=== PATIENT | female | born 1980 | race Caucasian/White ===

== ENCOUNTER 2016-03-12 05:38 | Emergency (ER) | payer OTHER ==
[~2016-03-12] VITALS: Ht 154.9 cm; Wt 71.7 kg
[~2016-03-12 05:38] MED LIST: CIPRO500 MG PO; NORCO 5/3251 TABLET PO; PROVENTIL HFA6.7 GM IH; ZOFRAN4 MG PO
[2016-03-12] MEDS ORDERED: PEPCID20 MG PO (06:28)
[2016-03-12] MEDS ORDERED: PREDNISONE10 MG PO (06:28)
[2016-03-12 06:54] VITALS: BP 134/68
== END 2016-03-12 06:56 | disposition home or self-care (01) ==
LOC: EME 05:38
DX: T78.40XA Allergy, unspecified, initial encounter (principal); X58.XXXA Exposure to other specified factors, initial encounter; L50.9 Urticaria, unspecified; L29.9 Pruritus, unspecified; F17.200 Nicotine dependence, unspecified, uncomplicated
CPT/HCPCS: 99281; 99283; J7512

== ENCOUNTER 2016-05-15 12:59 | Emergency (ER) | payer OTHER ==
[~2016-05-15] VITALS: Ht 154.9 cm; Wt 75.8 kg
[~2016-05-15 12:59] MED LIST changes: +PEPCID20 MG PO; +PREDNISONE10 MG PO
[2016-05-15] MEDS ORDERED: ATARAX,VISTARIL50 MG PO (14:50)
[2016-05-15 15:39] LABS: HEMATOCRIT 38.9 % (36.0-46.0); MCH 28.4 PG (29.0-34.0); MCHC 33.9 G/DL (30.0-36.0); MCV 83.7 FL (83-99); MEAN PLAT.VOLUME 10.3 uM^3 (9.5-12.4); PLATELET COUNT 229 K/uL (156-360); RBC DIS.WIDTH-CV 12.7 % (11.8-14.6); RED BLOOD COUNT 4.65 M/uL (3.80-5.20); WHITE BLOOD COUNT 7.6 K/uL (4.1-10.2)
[2016-05-15 15:54] LABS: CHLORIDE 107 mEq/L (99-109); POTASSIUM 4.1 mEq/L (3.7-5.4); SODIUM 138 mEq/L (136-147)
[2016-05-15 15:55] LABS: D-DIMER ELISA 0.28 mg/L FEU (< 0.57)
[2016-05-15 15:56] LABS: GLUCOSE 94 mg/dL (70-99)
[2016-05-15 15:57] LABS: ANION GAP 8 MEQ/L (2-14)
[2016-05-15 16:00] LABS: GFR ESTIMATE (CALCULATED) > 59 mL/min/
[2016-05-15 16:01] LABS: UREA NITROGEN (BUN) 12 mg/dL (9-23)
[2016-05-15 17:57] VITALS: BP 125/80
== END 2016-05-15 18:00 | disposition home or self-care (01) ==
LOC: EME 12:59
PROVIDERS: Nurse Practitioner Family
DX: M79.662 Pain in left lower leg (principal); M79.89 Other specified soft tissue disorders; R06.00 Dyspnea, unspecified; Z86.711 Personal history of pulmonary embolism; F17.200 Nicotine dependence, unspecified, uncomplicated
CPT/HCPCS: 71020; 73590; 80048; 85027; 85379; 93971; 99281; 99284

== ENCOUNTER 2016-07-13 17:02 | Emergency (ER) | payer OTHER ==
[~2016-07-13] VITALS: Ht 154.9 cm; Wt 80.1 kg
[~2016-07-13 17:02] MED LIST changes: +ATARAX,VISTARIL50 MG PO
[2016-07-13 17:38] LABS: ADD MIUA? NO; BILIRUBIN NEGATIVE; BLOOD NEGATIVE; COLOR YELLOW ((YELLOW)); GLUCOSE (STRIP) NEGATIVE; KETONES 5; LEUKOCYTES NEGATIVE; NITRITE NEGATIVE; PROTEIN (STRIP) NEGATIVE; SPECIFIC GRAVITY 1.016 (1.000-1.030); UROBILINOGEN 0.2 MG/DL (0.2-1.0)
[2016-07-13 18:31] LABS: CHLORIDE 107 mEq/L (99-109); POTASSIUM 3.8 mEq/L (3.7-5.4); SODIUM 139 mEq/L (136-147)
[2016-07-13 18:33] LABS: GLUCOSE 97 mg/dL (70-99)
[2016-07-13 18:34] LABS: ANION GAP 10 MEQ/L (2-14)
[2016-07-13 18:35] LABS: INTER. NORMALIZED RATIO 0.9; PROTHROMBIN TIME 9.5 (9.2-11.2); PTT 21.9 (25-32); TOTAL BILIRUBIN 0.2 mg/dL (0.0-1.0)
[2016-07-13 18:36] LABS: ALKALINE PHOSPHATASE 98 IU/L (3-129)
[2016-07-13 18:37] LABS: GFR ESTIMATE (CALCULATED) > 59 mL/min/
[2016-07-13 18:38] LABS: UREA NITROGEN (BUN) 7 mg/dL (9-23)
[2016-07-13 18:40] LABS: LIPASE 45 U/L (1.0-51.0)
[2016-07-13 19:32] LABS: BASOPHIL COUNT 0.1 K/uL (0-0.1); EOSINOPHIL (%) 10.4 % (0-5); EOSINOPHIL COUNT 0.7 K/uL (0-0.3); HEMATOCRIT 36.9 % (36.0-46.0); IMMATURE GRANULOCYTE (%) 0.2 % (0.0-0.7); INSTRUMENT ABS NEUTROPHIL CT 3.2 K/uL; LYMPHOCYTE COUNT 2.2 K/uL (1.0-2.8); MCH 28.1 PG (29.0-34.0); MCHC 33.3 G/DL (30.0-36.0); MCV 84.2 FL (83-99); MEAN PLAT.VOLUME 10.7 uM^3 (9.5-12.4); MONOCYTE (%) 8.1 % (3-12); MONOCYTE COUNT 0.5 K/uL (0-0.8); NEUTROPHIL (%) 47.6 % (45-76); NEUTROPHIL COUNT 3.2 K/uL (1.8-6.4); PLATELET COUNT 222 K/uL (156-360); RBC DIS.WIDTH-CV 13.2 % (11.8-14.6); RBC DIS.WIDTH-SD 40.6 % (39-53); RED BLOOD COUNT 4.38 M/uL (3.80-5.20); WHITE BLOOD COUNT 6.7 K/uL (4.1-10.2)
[2016-07-13] MEDS ORDERED: ZOFRAN ODT4 MG PO (20:15)
[2016-07-13] MEDS ORDERED: BENTYL20 MG PO (20:15)
[2016-07-13] MEDS ORDERED: MIRALAX255 GM PO (20:15)
[2016-07-13 20:41] VITALS: BP 130/85
== END 2016-07-13 20:42 | disposition home or self-care (01) ==
LOC: EME 17:02
PROVIDERS: Physician Assistant
DX: R10.2 Pelvic and perineal pain (principal); K59.00 Constipation, unspecified; R10.31 Right lower quadrant pain; D25.9 Leiomyoma of uterus, unspecified; F17.200 Nicotine dependence, unspecified, uncomplicated
CPT/HCPCS: 74176; 76856; 80053; 81003; 83690; 85025; 85025 91; 85610; 85730; 99281; 99285; J1885; J3010; J7030

== ENCOUNTER 2016-09-13 05:23 | Day surgery (SDC) | payer OTHER ==
[~2016-09-13] VITALS: Ht 154.9 cm; Wt 82.6 kg
[~2016-09-13 05:23] MED LIST changes: +BENTYL20 MG PO; +ELAVIL25 MG PO; +KLONOPIN1 MG PO; +MIRALAX255 GM PO; +OXAYDO5 MG PO; +ZOFRAN ODT4 MG PO; +ZOLOFT100 MG PO
[2016-09-13 05:53] VITALS: BP 135/83
[2016-09-13 09:45] VITALS: BP 111/66
[2016-09-13 10:36] VITALS: BP 138/89
== END 2016-09-13 10:45 | disposition home or self-care (01) ==
LOC: SDC
PROC: 0UDB8ZX Extraction of Endometrium, Via Natural or Artificial Opening Endoscopic, Diagnostic (ICD-10-PCS; principal; 2016-09-13)
DX: N84.0 Polyp of corpus uteri (principal); N92.1 Excessive and frequent menstruation with irregular cycle; F41.9 Anxiety disorder, unspecified; E66.9 Obesity, unspecified; Z68.34 Body mass index [BMI] 34.0-34.9, adult; F17.210 Nicotine dependence, cigarettes, uncomplicated; Z80.3 Family history of malignant neoplasm of breast; Z80.49 Family history of malignant neoplasm of other genital organs; Z83.3 Family history of diabetes mellitus; Z82.49 Family history of ischemic heart disease and other diseases of the circulatory system; Z82.3 Family history of stroke; Z81.8 Family history of other mental and behavioral disorders
CPT/HCPCS: 88305; J1100; J1885; J2250; J2405; J2765; J3010

== ENCOUNTER 2016-10-28 05:37 | Day surgery (SDC) | payer OTHER ==
[~2016-10-28] VITALS: Ht 154.9 cm; Wt 99.4 kg
[~2016-10-28 05:37] MED LIST changes: +KLONOPIN0.5 M1 PO; -KLONOPIN1 MG PO; +LAMICTAL25 MG PO; -OXAYDO5 MG PO; +OXYCODONE HCL10 MG PO
[2016-10-28 06:34] VITALS: BP 125/73
[2016-10-28 15:15] VITALS: BP 115/59
[2016-10-28 16:14] LABS: HEMATOCRIT 33.6 % (36.0-46.0); MCV 85.9 FL (83-99)
[2016-10-28 20:08] VITALS: BP 135/78
[2016-10-29 00:12] VITALS: BP 130/62
[2016-10-29 04:09] VITALS: BP 104/47
[2016-10-29 07:01] LABS: HEMATOCRIT 27.4 % (36.0-46.0); MCH 29.2 PG (29.0-34.0); MCHC 33.9 G/DL (30.0-36.0); MCV 85.9 FL (83-99); MEAN PLAT.VOLUME 10.6 uM^3 (9.5-12.4); PLATELET COUNT 225 K/uL (156-360); RBC DIS.WIDTH-CV 14.6 % (11.8-14.6)
[2016-10-29 07:03] LABS: ANION GAP 7 MEQ/L (2-14); CHLORIDE 109 MEQ/L (99-109); GFR ESTIMATE (CALCULATED) > 59 mL/min/; GLUCOSE 102 mg/dL (70-99); POTASSIUM 3.9 MEQ/L (3.7-5.4); SAMPLE HEMOLYSIS CHECK 0; SAMPLE ICTERIC CHECK 0; SAMPLE LIPEMIA CHECK 0; SODIUM 140 MEQ/L (136-147); UREA NITROGEN (BUN) 7 mg/dL (9-23)
[2016-10-29 07:23] LABS: RED BLOOD COUNT 3.19 M/uL (3.80-5.20)
[2016-10-29 08:35] VITALS: BP 134/67
[2016-10-29] MEDS ORDERED: MOTRIN800 MG PO (08:42)
[2016-10-29] MEDS ORDERED: OXYCODONE-APAP1 EACH PO (08:42)
== END 2016-10-29 09:22 | disposition home or self-care (01) ==
LOC: SDC 05:37 → ENRESERV 11:29 → 2SOUTH 11:30 → 2EAST 11:30 → 2SOUTH 11:30 → SDC 12:44 → ENRESERV 13:53 → 2EAST 15:07
PROVIDERS: Obstetrics & Gynecology
DX: N92.1 Excessive and frequent menstruation with irregular cycle (principal); N84.0 Polyp of corpus uteri; N93.8 Other specified abnormal uterine and vaginal bleeding; N31.9 Neuromuscular dysfunction of bladder, unspecified; N80.3 Endometriosis of pelvic peritoneum; N73.6 Female pelvic peritoneal adhesions (postinfective); Z98.51 Tubal ligation status; Z86.711 Personal history of pulmonary embolism; F17.200 Nicotine dependence, unspecified, uncomplicated; E66.9 Obesity, unspecified; Z68.35 Body mass index [BMI] 35.0-35.9, adult; R35.0 Frequency of micturition; Z86.19 Personal history of other infectious and parasitic diseases; Z80.49 Family history of malignant neoplasm of other genital organs; Z80.3 Family history of malignant neoplasm of breast; Z82.3 Family history of stroke; Z82.49 Family history of ischemic heart disease and other diseases of the circulatory system; Z88.8 Allergy status to other drugs, medicaments and biological substances
CPT/HCPCS: 80048; 85014; 85018; 85027; 87086; 88307; G0378; J0690; J1100; J1170; J2250; J2270; J2405; J2710; J3010; J7120; S0020

== ENCOUNTER 2017-06-08 22:48 | Emergency (ER) | payer OTHER ==
[~2017-06-08] VITALS: Ht 154.9 cm; Wt 84.8 kg
[~2017-06-08 22:48] MED LIST changes: +MOTRIN800 MG PO; +OXYCODONE-APAP1 EACH PO
[2017-06-09 01:43] LABS: BASOPHIL (%) 0.6 % (0-1); BASOPHIL COUNT 0.1 K/uL (0-0.1); EOSINOPHIL (%) 6.3 % (0-5); EOSINOPHIL COUNT 0.5 K/uL (0-0.3); HEMATOCRIT 39.3 % (36.0-46.0); HEMOGLOBIN 13.6 G/DL (11.9-15.5); IMMATURE GRANULOCYTE (%) 0.1 % (0.0-0.7); LYMPHOCYTE (%) 40.4 % (15-42); LYMPHOCYTE COUNT 3.3 K/uL (1.0-2.8); MCH 30.7 PG (29.0-34.0); MCHC 34.6 G/DL (30.0-36.0); MCV 88.7 FL (83-99); MONOCYTE (%) 7.6 % (3-12); MONOCYTE COUNT 0.6 K/uL (0-0.8); NEUTROPHIL COUNT 3.7 K/uL (1.8-6.4); PLATELET COUNT 203 K/uL (156-360); RBC DIS.WIDTH-CV 11.9 % (11.8-14.6); RBC DIS.WIDTH-SD 38.5 % (39-53); RED BLOOD COUNT 4.43 M/uL (3.80-5.20); WHITE BLOOD COUNT 8.3 K/uL (4.1-10.2)
[2017-06-09 01:53] LABS: ALBUMIN 4.2 g/dL (3.2-4.8); CHLORIDE 105 mEq/L (99-109); POTASSIUM 4.3 mEq/L (3.7-5.4); SODIUM 137 mEq/L (136-147)
[2017-06-09 01:56] LABS: GLUCOSE 100 mg/dL (70-99); TOTAL PROTEIN 6.8 g/dL (6.4-8.3)
[2017-06-09 01:58] LABS: TOTAL BILIRUBIN 0.5 mg/dL (0.0-1.0)
[2017-06-09 01:59] LABS: ALKALINE PHOSPHATASE 92 IU/L (3-129); CREATININE 0.7 mg/dL (0.6-1.3); GFR ESTIMATE (CALCULATED) > 59 mL/min/
[2017-06-09 02:00] LABS: UREA NITROGEN (BUN) 16 mg/dL (9-23)
[2017-06-09 02:01] LABS: AST (GOT) 17 IU/L (2-34)
[2017-06-09 02:02] LABS: ALT (GPT) 21 IU/L (3-49)
[2017-06-09 02:03] LABS: LIPASE 38 U/L (1.0-51.0)
[2017-06-09 02:09] LABS: QUANTITATIVE HCG < 4.0 MIU/ML
[2017-06-09] MEDS ORDERED: FLEET MINERAL133 ML PR (02:58)
[2017-06-09 03:24] VITALS: BP 127/74
== END 2017-06-09 03:26 | disposition home or self-care (01) ==
LOC: EME 22:48
PROVIDERS: Emergency Medicine
DX: K59.00 Constipation, unspecified (principal); F32.9 Major depressive disorder, single episode, unspecified; F41.9 Anxiety disorder, unspecified; F17.200 Nicotine dependence, unspecified, uncomplicated; Z88.8 Allergy status to other drugs, medicaments and biological substances
CPT/HCPCS: 74019; 74177; 80053; 81003; 83690; 84702; 85025; 99281; 99285; J7030

== ENCOUNTER 2017-10-26 19:43 | Inpatient (IN) | payer OTHER ==
[~2017-10-26] VITALS: Ht 154.9 cm; Wt 77.1 kg
[~2017-10-26 19:43] MED LIST changes: +FLEET MINERAL133 ML PR
[2017-10-26 20:25] LABS: HEMOGLOBIN 14.6 G/DL (11.9-15.5); MCH 30.7 PG (29.0-34.0); MCHC 35.6 G/DL (30.0-36.0); MCV 86.3 FL (83-99); PLATELET COUNT 221 K/uL (156-360); RBC DIS.WIDTH-SD 37.4 % (39-53); RED BLOOD COUNT 4.75 M/uL (3.80-5.20); WHITE BLOOD COUNT 15.7 K/uL (4.1-10.2)
[2017-10-26 20:37] LABS: ALBUMIN 4.7 g/dL (3.2-4.8)
[2017-10-26 20:38] LABS: CHLORIDE 104 mEq/L (99-109); POTASSIUM 4.3 mEq/L (3.7-5.4); SODIUM 139 mEq/L (136-147)
[2017-10-26 20:40] LABS: GLUCOSE 106 mg/dL (70-99); TOTAL PROTEIN 7.6 g/dL (6.4-8.3)
[2017-10-26 20:43] LABS: ALKALINE PHOSPHATASE 143 IU/L (3-129)
[2017-10-26 20:44] LABS: CREATININE 0.8 mg/dL (0.6-1.3); GFR ESTIMATE (CALCULATED) > 59 mL/min/
[2017-10-26 20:45] LABS: AST (GOT) 17 IU/L (2-34); UREA NITROGEN (BUN) 9 mg/dL (9-23)
[2017-10-26 20:46] LABS: ALT (GPT) 19 IU/L (3-49)
[2017-10-26 22:03] LABS: APPEARANCE CLEAR ((CLEAR)); BILIRUBIN NEGATIVE; BLOOD SMALL; COLOR AMBER ((YELLOW)); GLUCOSE (STRIP) NEGATIVE; KETONES 20; LEUKOCYTES MODERATE; NITRITE NEGATIVE; PROTEIN (STRIP) 100; SPECIFIC GRAVITY 1.021 (1.000-1.030)
[2017-10-26 22:08] LABS: BACTERIA NONE SEEN /HPF; EPITHELIAL CELLS RARE /HPF; MUCUS TRACE /LPF; UCUL ADDED? YES; WHITE BLOOD CELLS TNTC /HPF (0-5)
[2017-10-27 02:54] VITALS: BP 130/74
[2017-10-27 07:50] VITALS: BP 152/88
[2017-10-27 11:24] LABS: HEMATOCRIT 37.5 % (36.0-46.0); HEMOGLOBIN 13.3 G/DL (11.9-15.5); MCH 30.9 PG (29.0-34.0); MCHC 35.5 G/DL (30.0-36.0); MCV 87.2 FL (83-99); PLATELET COUNT 182 K/uL (156-360); RBC DIS.WIDTH-SD 38.7 % (39-53); WHITE BLOOD COUNT 14.1 K/uL (4.1-10.2)
[2017-10-27 11:32] LABS: CHLORIDE 109 mEq/L (99-109); POTASSIUM 4.1 mEq/L (3.7-5.4); SODIUM 137 mEq/L (136-147)
[2017-10-27 11:34] LABS: GLUCOSE 95 mg/dL (70-99)
[2017-10-27 11:38] LABS: CREATININE 0.7 mg/dL (0.6-1.3); GFR ESTIMATE (CALCULATED) > 59 mL/min/; UREA NITROGEN (BUN) 9 mg/dL (9-23)
[2017-10-27 15:34] VITALS: BP 138/87
[2017-10-27] MEDS ORDERED: CEFTIN500 MG PO (16:05)
[2017-10-27] MEDS ORDERED: MOTRIN800 MG PO (16:05)
[2017-10-27] MEDS ORDERED: ZOFRAN4 MG PO (16:09)
== END 2017-10-27 17:08 | disposition home or self-care (01) | DRG 699 ==
LOC: EME 19:43 → EDOF 10-27 01:55 → 5EAST 10-27 02:34
PROVIDERS: Nurse Practitioner Family
DX: T83.518A Infection and inflammatory reaction due to other urinary catheter, initial encounter (principal); N10 Acute pyelonephritis; N28.89 Other specified disorders of kidney and ureter; G83.4 Cauda equina syndrome; K59.09 Other constipation; Z87.11 Personal history of peptic ulcer disease; F17.210 Nicotine dependence, cigarettes, uncomplicated; F32.9 Major depressive disorder, single episode, unspecified; F41.9 Anxiety disorder, unspecified; R11.2 Nausea with vomiting, unspecified; E66.9 Obesity, unspecified; Z68.32 Body mass index [BMI] 32.0-32.9, adult
CPT/HCPCS: 74177; 80048; 80053; 81003; 83605; 85027; 87040; 87086; 99281; 99285; J0692; J0696; J1650; J1885; J2270; J2405; J7030